=== PATIENT | male | born 1960 | race Caucasian/White ===

== ENCOUNTER 2021-01-22 19:34 | Emergency (ER) | payer OTHER, SELFPAY ==
[2021-01-22 19:54] VITALS: BP 139/86; PULSE 95; RESP 16; TEMP 37.9; O2SAT 95; BMI 27.3
--- NOTE | 2021-01-22 20:27 | W.ED.EXTPRO ---
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 Thought maybe it had a spider bite originally. Also presents with cough denies shortness of breath has had body aches fever sinus problems worried he might have Covid since he is on the road exposed to a lot of different areas. MD Complaint: extremity pain and extremity swelling Onset (ago): day(s) Pain Consistency: constant Location: right, lower extremity and knee Severity scale (1-10): 4 Quality: burning, aching and dull Radiation: proximal and distal Relieving factors: nothing Exacerbating factors: range of motion Associated symptoms: Reports arthralgias and fever(s); Deny chest pain or rash Context: recent travel Review of Systems Const: Reports: fever(s) and body aches Eyes: Denies: change in vision or blurry vision ENMT: Denies: throat pain or nasal congestion Card: Denies: chest pain or dyspnea on exertion Resp: Reports: non-productive cough; Denies: dyspnea or productive cough GI: Denies: abdominal pain, nausea or vomiting : Denies: difficulty urinating Musc: Reports: extremity pain, joint pain (Right knee) and joint swelling Skin/Breast: Denies: rash Neuro: Denies: headache(s) Psych: Denies: anxiety or depression Jose Luis/Lymph: Denies: easy bruising Physical Exam Const: COMMON NORMALS: no acute distress, average body habitus and patient oriented x3 HENMT: COMMON NORMALS: normocephalic HEAD & SCALP: normal to inspection and normocephalic FACE & SINUS: normal facial exam Eye: COMMON NORMALS: conjunctivae normal GENERAL EYE: appearance normal, both eyes and all related structures CONJUNCTIVA: Yes conjunctivae normal Neck/C-Spine: COMMON NORMALS: no JVD Chest: COMMONS NORMALS: normal inspection of the chest Resp: COMMON NORMALS: normal respiratory effort and clear to auscultation bilaterally AUSCULTATION: clear to auscultation bilaterally Cardio: COMMON NORMALS: no JVD, regular rate and regular rhythm RATE: regular rate RHYTHM: regular rhythm GI: COMMON NORMALS: Normal to inspection, nondistended, normoactive bowel sounds present Extremity: RIGHT LOWER EXTREMITY: Yes lower leg (Moderate erythema to right lower aspect of the knee, drainage, central area) Right lower leg: Yes inspection (Tender mild swelling) and Yes other (Central area of drainage to right lateral knee) Neuro: COMMON NORMALS: patient oriented x3 Course Vital Signs: Vital signs: Vital Signs Temperature 98.9 F 01/22/21 22:03 Pulse Rate 80 01/22/21 22:03 Respiratory Rate 18 01/22/21 22:03 Blood Pressure 143/78 01/22/21 22:03 Pulse Oximetry 96 01/22/21 22:03 MDM - Extremity (Nontraumatic) MDM Narrative: Medical decision making narrative: Patient with cellulitis to the superficial right knee area. Started with a pimple and now is progressed and spread to the lateral medial aspects of the knee. Possibly could start as a spider bite but now appears to be cellulitis. White count is 15,000. Patient responded well to antibiotics and pain medication. Patient was instructed to follow-up here if worsening symptoms and I went over those symptoms with him our follow-up CHRERY Auguste at [facility] next week. Lab Data: Labs: Lab Results 01/22/21 01/22/21 Range/Units 20:45 21:30 WBC 15.5 H (4.0-10.0) 10^3/ uL RBC 4.61 (4.1-5.3) 10^6/u L Hgb 13.6 (11.7-16.6) g/dL Hct 40.7 L (42.0-52.0) % MCV 88.3 (80-94) fL MCH 29.5 (28.0-34.0) pg MCHC 33.4 (30.0-36.0) g/dL RDW 12.4 (12.1-15.1) % Plt Count 194 (130-400) 10^3/c mm MPV 10.7 H (7.4-10.4) fL Neut % (Auto) 74.5 % Lymph % (Auto) 15.4 % [place] % (Auto) 9.2 % Eos % (Auto) 0.1 % Baso % (Auto) 0.3 % Neut # (Auto) 11.59 H (1.8-7.7) 10^3/u L Lymph # (Auto) 2.4 (0.8-4.8) 10^3/u L [place] # (Auto) 1.4 H (0.2-0.9) 10^3/u L Eos # (Auto) 0.0 (0.0-0.8) 10^3/u L Baso # (Auto) 0.0 (0.0-0.1) 10^3/u L Nucleated RBC % (a uto) 0 % Nucleated RBCs # 0.0 /100WBC SARS-CoV-2 Ag (Rap id) Negative (Negative) Discharge Plan Discharge Patient Disposition: Home Clinical Impression: Cellulitis Qualifiers: Site of cellulitis: extremity Site of cellulitis of extremity: lower extremity Laterality: right Qualified Code(s): L03.115 - Cellulitis of right lower limb Condition: Stable Prescriptions: New hydrocodone-acetaminophen 5-325 mg tablet 1 tab PO TID PRN (Reason: pain) Qty: 10 RF: 0 clindamycin HCl 300 mg capsule 300 mg PO TID 7 Days Qty: 21 RF: 0 No Action sertraline 25 mg tablet 25 mg PO DAILY RF: 0 multivitamin Tablet 1 tab PO DAILY RF: 0 zinc 50 mg Capsule 50 mg PO DAILY RF: 0 Discharge Orders: Discharge ED (Routine); Ordered 01/22/21 Ordered By: Robert Liu Referrals: Duran Cortez [Primary Care Provider] - Discharge Diet: Usual diet Discharge Activity: Increase activity as tolerated Patient Instructions: Cellulitis (ED), Opioid Safety Activity Restrictions/Additional Instructions: Follow-up with medical provider as directed. Take medications as prescribed. Return to the ER or your medical provider if condition worsens. Please read and understand discharge instructions. If any questions ask please. Coding Level of Care Code ED Manager Latin for Tj Fwd Exam Comprehensive
[2021-01-22] MEDS: HYDROcodone-acetaminophen 7.5-325 mg Tablet 1 TAB PO (21:16)
[2021-01-22] MEDS: cefTRIAXone 2,000 MG in sodium chloride 0.9% (plus) 100 ML 200 MG IV (21:17)
[2021-01-22 21:23] LABS: SARS Covid-2 Antigen Negative (Negative)
[2021-01-22 21:43] LABS: Basophils % 0.3 %; Eosinophils % 0.1 %; Hematocrit 40.7 % (42.0-52.0); Hemoglobin 13.6 g/dL (11.7-16.6); Lymphocytes # 2.4 10^3/uL (0.8-4.8); Lymphocytes % 15.4 %; Mean Corpuscular HGB Conc 33.4 g/dL (30.0-36.0); Mean Corpuscular Hemoglobin 29.5 pg (28.0-34.0); Mean Corpuscular Volume 88.3 fL (80-94); Mean Platelet Volume 10.7 fL (7.4-10.4); Monocytes # 1.4 10^3/uL (0.2-0.9); Monocytes % 9.2 %; Neutrophils # 11.59 10^3/uL (1.8-7.7); Neutrophils % 74.5 %; Nucleated Red Blood Cells % 0 %; Platelet Count 194 10^3/cmm (130-400); Red Blood Count 4.61 10^6/uL (4.1-5.3); Red Cell Distribution Width 12.4 % (12.1-15.1); White Blood Count 15.5 10^3/uL (4.0-10.0)
[2021-01-22 22:03] VITALS: BP 143/78; PULSE 80; RESP 18; TEMP 37.2; O2SAT 96
== END 2021-01-22 22:20 | disposition home or self-care (01) ==
PROVIDERS: Emergency Provider Nurse Practitioner Family; PCP Physician Assistant Medical
DX: L03.115 Cellulitis of right lower limb (principal); Z20.822 Contact with and (suspected) exposure to COVID-19
CPT/HCPCS: 85025; 87040; 87070; 87426; 96365; 99283; J0696

== ENCOUNTER 2021-01-25 15:47 | Inpatient (IN) | payer OTHER, SELFPAY ==
[2021-01-25 16:06] VITALS: BP 146/76; PULSE 91; RESP 18; TEMP 37.2; O2SAT 95; BMI 28.0
[2021-01-25 18:05] LABS: Basophils % 0.4 %; Eosinophils # 0.1 10^3/uL (0.0-0.8); Eosinophils % 1.1 %; Hematocrit 38.1 % (42.0-52.0); Hemoglobin 12.5 g/dL (11.7-16.6); Lymphocytes # 2.3 10^3/uL (0.8-4.8); Lymphocytes % 20.9 %; Mean Corpuscular HGB Conc 32.8 g/dL (30.0-36.0); Mean Corpuscular Hemoglobin 29.1 pg (28.0-34.0); Mean Corpuscular Volume 88.6 fL (80-94); Mean Platelet Volume 10.1 fL (7.4-10.4); Neutrophils # 7.63 10^3/uL (1.8-7.7); Neutrophils % 68.2 %; Nucleated Red Blood Cells % 0 %; Platelet Count 282 10^3/cmm (130-400); Red Cell Distribution Width 12.7 % (12.1-15.1); White Blood Count 11.2 10^3/uL (4.0-10.0)
[2021-01-25 18:30] LABS: Alanine Aminotransferase 92 U/L (0-41); Albumin Level 3.3 g/dL (3.5-5.2); Alkaline Phosphatase 194 IU/L (40-130); Anion Gap 15.5 (5-19); Aspartate Amino Transferase 33 U/L (0-40); Blood Urea Nitrogen 13 mg/dL (6-20); C Reactive Protein 203.5 mg/L (0.0-4.9); Calcium 8.7 mg/dL (8.5-10.5); Carbon Dioxide 26 mmol/L (22-29); Chloride 96 mmol/L (98-107); Glomerular Filtration Rate 115.8 mL/min (90-130); Glucose 120 mg/dL (65-115); Osmolality Calculated 279 mOsm/kg (285-295); Potassium 3.5 mmol/L (3.5-5.1); Sodium 134 mmol/L (136-145); Total Bilirubin 0.8 mg/dL (0.15-1.2); Total Protein 7.3 g/dL (6.6-8.7)
[2021-01-25 22:47] VITALS: BP 161/87; PULSE 100; RESP 17; O2SAT 97
--- NOTE | 2021-01-25 22:52 | XRR_ITS ---
PROCEDURE INFORMATION: Exam: XR Right Knee Exam date and time: 01/25/2021 10:52 PM Age: 60 years old Clinical indication: Pain; Edema; Yes, it is localized; Knee; Right TECHNIQUE: Imaging protocol: XR Right knee. Views: 3 views. COMPARISON: No relevant prior studies available. FINDINGS: Bones/joints: Mild patellofemoral compartment primary osteoarthritis. Soft tissues: Normal. XR/XR knee RT 3V* [id number] IMPRESSION: Mild patellofemoral compartment primary osteoarthritis.
--- NOTE | 2021-01-25 22:53 | W.ED.EXTPRO ---
HPI - Extremity Problem General: Chief complaint: Extremity Problem,Nontraumatic Stated complaint: RLE PAIN/SWELLING - SEEN HERE 01.22.21 FOR SAME Time Seen by Provider: 01/25/21 22:46 History of Present Illness: HPI Narrative: This patient is a 60-year-old male presents to the emergency department for cellulitis and abscess of the right lower leg just below the knee. Patient seen was a couple days ago and started on clindamycin. Patient states the erythema is getting worse and antibiotics not working. Patient was seen by his primary care doctor today and was advised to come back to the emergency department due to worsening cellulitis. Will do medical evaluation treat as MD Complaint: extremity pain and extremity swelling Location: right and lower extremity Radiation: none Relieving factors: nothing Exacerbating factors: range of motion and walking Associated symptoms: Deny chest pain, fever(s) or rash Review of Systems General: Reports: 10 or more systems reviewed and unremarkable except in HPI and below Const: Denies: fever(s), chills, body aches or fatigue Eyes: Denies: change in vision or blurry vision ENMT: Denies: throat pain, hoarseness or mouth pain Card: Denies: chest pain, palpitations, irregular heart rhythm, edema, swelling of feet/ankles or lightheadedness Resp: Denies: dyspnea, productive cough, non-productive cough, wheezing or pain on inspiration GI: Denies: abdominal pain, nausea or vomiting : Denies: flank pain, dysuria, urinary frequency, urinary urgency or urinary hesitancy Musc: Denies: neck pain, back pain, extremity pain, extremity swelling, joint pain, joint swelling, joint redness, joint warmth or limited range of motion Skin/Breast: Reports: erythema, skin tenderness, skin swelling, changing lesions and changes in skin color; Denies: rash or pruritus Neuro: Denies: headache(s), numbness in extremities or weakness in extremities Psych: Denies: anxiety or depression Physical Exam Const: COMMON NORMALS: no acute distress, average body habitus, patient oriented x3, no limitations, healthy appearing, alert and well nourished HENMT: COMMON NORMALS: normocephalic, atraumatic, hearing grossly normal bilaterally, external ears normal, EAC's normal, TM's normal bilaterally, Normal external nose present, Normal nasal mucous membranes and turbinates present, moist oral mucous membranes, oropharynx normal, dentition normal and gingiva normal HEAD & SCALP: normocephalic and atraumatic NOSE: Normal external nose present and Normal nasal mucous membranes and turbinates present EXTERNAL EAR: Yes external ears normal EXTERNAL AUDITORY CANAL: EAC's normal TYMPANIC MEMBRANE: TM's normal bilaterally Neck/C-Spine: COMMON NORMALS: full ROM, no lymphadenopathy, supple, no meningeal signs, no JVD, Thyroid normal and No carotid bruits THYROID: Thyroid normal Chest: COMMONS NORMALS: normal inspection of the chest, normal palpation of entire chest wall, normal inspection of the breasts and normal palpation of the breasts Breast/axilla inspection: Yes normal inspection of the breasts BREAST/AXILLA PALPATION: Yes normal palpation of the breasts Resp: COMMON NORMALS: normal respiratory effort, No retractions, No use of accessory muscles, clear to auscultation bilaterally and percussion normal AUSCULTATION: clear to auscultation bilaterally PERCUSSION: percussion normal Cardio: COMMON NORMALS: no JVD, regular rate, regular rhythm, S1 normal heart sound present, S2 normal heart sound present, No gallops present (Cardio), No clicks present (Cardio), No murmurs present (Cardio), No rub (Cardio) and Peripheral pulses 2+ throughout RATE: regular rate RHYTHM: regular rhythm HEART SOUNDS: S1 normal heart sound present and S2 normal heart sound present PERIPHERAL PULSES: Peripheral pulses 2+ throughout GI: COMMON NORMALS: Normal to inspection, nondistended, normoactive bowel sounds present, Soft to palpation, non-tender, No hepatosplenomegaly present, no masses and no bruits PALPATION: Yes Soft to palpation and Yes No hepatosplenomegaly present : COMMON NORMALS: Yes no CVA tenderness BLADDER/KIDNEY EXAM: Yes no CVA tenderness Back/Pelvis: COMMON NORMALS: no CVA tenderness, thoracic and lumbar spine normal to inspection, no thoracic nor lumbar tenderness, thoraco-lumbar ROM normal and straight leg raise negative bilaterally Extremity: COMMON NORMALS: capillary refill normal, no joint enlargement, no clubbing, cyanosis or edema, no calf tenderness and no pedal edema NARRATIVE EXTREMITY EXAM: Significant erythema and abscess below the knee of the right leg. Worsening cellulitis. Worsening swelling. Neuro: COMMON NORMALS: patient oriented x3 SENSORIUM/ORIENTATION: Yes alert MENINGEAL SIGNS: Yes no meningeal signs Course Reevaluation(s): Reevaluation #1: Patient stable at this time. I discussed at length with patient and friend about findings. Needed IV antibiotics. Possible surgical debridement. They are agreeable for admission to the Time: 23:59 Consultations: Consultation #1: I did discuss at length with Dr. Nair. He is agreeable to see the patient admitted for hospital for IV antibiotics. Time: 00:00 Vital Signs: Vital signs: Vital Signs Temperature 98.9 F 01/25/21 16:06 Pulse Rate 90 01/25/21 23:21 Respiratory Rate 18 01/25/21 23:21 Blood Pressure 161/87 01/25/21 22:47 Pulse Oximetry 95 01/25/21 23:21 MDM - Extremity (Nontraumatic) MDM Narrative: Medical decision making narrative: This patient is a 60-year-old male presents to the emergency department for cellulitis and abscess of the right lower leg just below the knee. Patient seen was a couple days ago and started on clindamycin. Patient states the erythema is getting worse and antibiotics not working. Patient was seen by his primary care doctor today and was advised to come back to the emergency department due to worsening cellulitis. Patient stable at this time. I discussed at length with patient and friend about findings. Needed IV antibiotics. Possible surgical debridement. They are agreeable for admission to the I did discuss at length with Dr. Nair. He is agreeable to see the patient admitted for hospital for IV antibiotics. Medical Records: Attestation: I reviewed the patient's medical records. Lab Data: Attestation: I reviewed the patient's lab results. Labs: Lab Results 01/25/21 01/25/21 01/25/21 Range/Units 17:57 17:57 23:00 WBC 11.2 H (4.0-10.0) 10^3/ uL RBC 4.30 (4.1-5.3) 10^6/u L Hgb 12.5 (11.7-16.6) g/dL Hct 38.1 L (42.0-52.0) % MCV 88.6 (80-94) fL MCH 29.1 (28.0-34.0) pg MCHC 32.8 (30.0-36.0) g/dL RDW 12.7 (12.1-15.1) % Plt Count 282 (130-400) 10^3/c mm MPV 10.1 (7.4-10.4) fL Neut % (Auto) 68.2 % Lymph % (Auto) 20.9 % [place] % (Auto) 9.0 % Eos % (Auto) 1.1 % Baso % (Auto) 0.4 % Neut # (Auto) 7.63 (1.8-7.7) 10^3/u L Lymph # (Auto) 2.3 (0.8-4.8) 10^3/u L [place] # (Auto) 1.0 H (0.2-0.9) 10^3/u L Eos # (Auto) 0.1 (0.0-0.8) 10^3/u L Baso # (Auto) 0.0 (0.0-0.1) 10^3/u L Nucleated RBC % (a uto) 0 % Nucleated RBCs # 0.0 /100WBC Sodium 134 L (136-145) mmol/L Potassium 3.5 (3.5-5.1) mmol/L Chloride 96 L (98-107) mmol/L Carbon Dioxide 26 (22-29) mmol/L Anion Gap 15.5 (5-19) BUN 13 (6-20) mg/dL Creatinine 0.7 (0.7-1.2) mg/dL GFR Calculation 115.8 (90-130) mL/min Glucose 120 H (65-115) mg/dL Calculated Osmolal ity 279 L (285-295) mOsm/k g Lactic Acid 1.1 (0.5-2.2) mmol/L Calcium 8.7 (8.5-10.5) mg/dL Total Bilirubin 0.8 (0.15-1.2) mg/dL AST 33 (0-40) U/L ALT 92 H (0-41) U/L Alkaline Phosphata se 194 H (40-130) IU/L C-Reactive Protein 203.5 H (0.0-4.9) mg/L Total Protein 7.3 (6.6-8.7) g/dL Albumin 3.3 L (3.5-5.2) g/dL Globulin 4.0 (1.3-4.6) g/dL Discharge Plan Discharge Patient Disposition: Admitted As Inpatient Clinical Impression: Cellulitis, Abscess Condition: Stable Coding Level of Care Code ED Photography And Prints Curator for Chg Fwd Exam Comprehensive
[2021-01-25 23:21] VITALS: PULSE 90; RESP 18; O2SAT 95
[2021-01-25] MEDS: vancomycin 1,000 MG in sodium chloride 0.9% 250 ML 250 MG IV (23:22)
[2021-01-25] MEDS: morphine 4 mg/mL SDV 1 mL IVP (23:22)
[2021-01-25] MEDS: ondansetron 2 mg/ML SDV 2 mL 4 MG IVP (23:22)
[2021-01-25] MEDS: sodium chloride 0.9% 500 ML IV (23:22)
[2021-01-25 23:56] LABS: Lactic Sepsis W/Reflex 1.1 mmol/L (0.5-2.2)
[2021-01-26] VITALS (11 sets, daily range): BP systolic 109–134; BP diastolic 59–74; PULSE 72–86; RESP 14–18; TEMP 36.6–38.1; O2SAT 91–97
--- NOTE | 2021-01-26 02:07 | P.HP_ITS ---
Providers/Chief Complaint Admitting Physician: Zhen Nair Primary Care Provider: Duran Cortez Chief Complaint: RLE PAIN/SWELLING - SEEN HERE 01.22.21 FOR SAME History of Present Illness Mario Joseph is a 60 year old male past medical history of depression on zoloft who presented to ER with worsening right lower extremity cellulits. Patient has denied any trauma to leg. Noted increasing erythema for which he was seen on and started on clindamycin 300 mg PO TID. Stated despite this his erythema progressively worsened. Noted an area on antrolateral aspect of right knee that started to drain pus like material. Noted subjective fever and chills. No nausea or vomiting. Denied any chest pain or dyspnea. On arrival to Er he was started on vancomycin and zosyn and admitted to hospitalist.. Review of Systems General: Reports: 10 or more systems reviewed and unremarkable except in HPI and below Medications/Allergies Home Medications Medication Instructions Recorded Confirmed Last Taken Type clindamycin HCl 300 mg PO TID 7 Days #21 cap 01/22/21 Unknown Rx hydrocodone-acetaminophen 1 tab PO TID PRN #10 tab 01/22/21 Unknown Rx multivitamin 1 tab PO DAILY 01/22/21 01/22/21 01/21/21 History sertraline 25 mg PO DAILY 01/22/21 01/22/21 01/21/21 History zinc 50 mg PO DAILY 01/22/21 01/22/21 01/21/21 History Allergies Allergy/AdvReac Type Severity Reaction Status Date / Time No Known Allergies Allergy Unverified 01/22/21 20:24 Vitals/I&O/Wt Last Vital Signs Temp 100.5 F H 01/26/21 03:00 Pulse 74 01/26/21 03:14 Resp 18 01/26/21 03:14 BP 122/74 01/26/21 03:14 Pulse Ox 97 01/26/21 03:14 01/25/21 01/25/21 01/26/21 14:59 22:59 06:59 Intake Total 500 / 500 Balance 500 / 500 Weight last 48 hrs Weight 93.894 kg Physical Exam Narrative: EXAM NARRATIVE: General- alert awake and oriented x3 HEENT: Grossly unremarkable Chest- Non-labored respiration CVS - regular rate rhythm Abdomen-soft nontender nondistended Extremities-Right knee ? anterlateral area abscess- draining, erythema extending to ankle. Data : 01/25/21 17:57 01/25/21 17:57 Micro: Microbiology 01/25/21 18:00 Blood Culture - Preliminary Blood SPECIMEN COLLECTED 01/25/21 17:57 Blood Culture - Preliminary Blood SPECIMEN COLLECTED A&P Assessment and plan (1) Cellulitis and abscess of left lower extremity: Failed outpatient tx with clindamycin Less likely septic joint however can not r/o Vancomycin/zosyn to continue Wound culture Blood culture x 2 Pain control Will need to consult surgery in am Status: Acute Attestations Medical Necessity Statement*: Anticipate over 2 midnight stay in hospital for eval and treatment of abscess/cellulitis failed outpatient treatment. Time Spent in Patient Care: Greater than 35 minutes (>than 50% of time spent in counselling and/or direct pt care on unit) . Coding Level of Care Code Acute Judicial Clerk for Tj Mancini Diagnoses Cellulitis and abscess of left lower extremity L03.116; L02.416
[2021-01-26] MEDS: sodium chloride 0.9% 1,000 ML 75 ML IV (04:50)
[2021-01-26] MEDS: HYDROcodone-acetaminophen 5-325 mg Tablet 1 TAB PO ×3 (04:51→23:58)
--- NOTE | 2021-01-26 08:04 | USCV_ITS ---
Mario Joseph Age: 60 Gender: M : 1960 Exam Date: 01/26/2021 11:23 Ordering Phys: Sherwin Berman MD Technologist: Opal Rich Exam Location: [facility] [place] Indication: RLE PAIN, SWELLING, AND DISCOLORATION HISTORY: Lower extremity swelling. Lower extremity pain. PROCEDURES: Venous duplex imaging was performed in only the right lower extremity. The following venous structures were evaluated: common femoral vein, profunda vein, proximal portion of the greater saphenous vein, superficial femoral vein, and the popliteal vein. In addition, the posterior tibial and peroneal trunk were evaluated. Serial compression, augmentation maneuvers, and spectral Doppler flow evaluation were performed. FINDINGS: Normal 2-D Doppler and augmentation and compressibility throughout the lower extremity venous structures. Additional imaging through the proximal calf veins also reveals no thrombus. Limited evaluation of the greater saphenous vein is patent with no thrombus. CONCLUSIONS No DVT right lower extremity. Dr. Renee Vang DO (Electronically Signed) Final Date: 26 January 2021 11:39 S
--- NOTE | 2021-01-26 08:17 | P.PN_ITS ---
Subjective Subjective: Interval history: Mario reports his knee feels a little bit better than yesterday. History and physical reviewed. Symptoms started about 1 week ago. And was draining around January 22. He reports prior to it draining there was a significant amount of swelling below his knee. Was treated with clindamycin starting after an emergency department visit on the . Medications: Reviewed: Yes Vitals/I&O/Wt Last Vital Signs Temp 98.3 F 01/26/21 08:00 Pulse 73 01/26/21 08:00 Resp 16 01/26/21 08:00 BP 110/67 01/26/21 08:00 Pulse Ox 93 01/26/21 08:00 01/25/21 01/26/21 01/26/21 22:59 06:59 14:59 Intake Total 800 / 800 Balance 800 / 800 Weight last 48 hrs Weight 93.894 kg Physical Exam Narrative: EXAM NARRATIVE: General exam is no apparent distress Neck is supple no lymphadenopathy or thyromegaly Cardiovascular regular rate and rhythm without murmur Lungs clear Abdomen is soft with positive bowel sounds Right lower extremity with erythema edema mostly centered over the prepatellar bursa but certainly extending into the local tissues. No significant pain with pressure over the patella, upper knee, or posterior. Distal pulses are intact. Edema of the leg is noted as well. Left leg appears normal with no cyanosis clubbing or edema Data : 01/25/21 17:57 01/25/21 17:57 Micro: Microbiology 01/25/21 18:00 Blood Culture - Preliminary Blood SPECIMEN COLLECTED 01/25/21 17:57 Blood Culture - Preliminary Blood SPECIMEN COLLECTED A&P Assessment and plan (1) Prepatellar bursitis: Patient failed outpatient treatment I believe he has septic prepatellar bursitis. It appears a culture has been done in the emergency department. A blood culture was also done. Orthopedic consultation Continue vancomycin, Zosyn Check venous duplex, to make sure no DVT is present Status: Acute (2) Cellulitis and abscess of left lower extremity: See above Status: Acute Additional A&P Information History of depression. Continue Zoloft. Full code Heparin for DVT prophylaxis Attestations Medical Necessity Statement*: Needs continued hospitalization for IV antibiotics secondary to septic bursitis Coding Level of Care Code Acute Baling Press Operator for Tj Mancini Diagnoses Prepatellar bursitis M70.40 Cellulitis and abscess of left lower extremity L03.116; L02.416
[2021-01-26] MEDS: vancomycin 1,500 MG/300 ML PIGGYBACK 200 MG IV ×3 (08:42→23:58)
[2021-01-26] MEDS: heparin 5,000 unit/mL INJ 1 mL 5000 UNIT SUBCUT ×2 (08:48→20:43)
[2021-01-26] MEDS: sertraline 50 mg Tablet 25 MG PO (08:48)
--- NOTE | 2021-01-26 10:20 | PC.CHAP ---
Pastoral Care Encounter/Spiritual Assessment Type of Contact [] Declined net software architect visit [] Patient/Family/Request visit [] Outpatient visit [] Follow-up visit [] Physician referral [] Code/Alert [x] Routine visit [] Staff referral [] Actively dying [x] Patient sleeping [] Family support [] [] Out of room [] Palliative care [] [] Receiving care in room [] Pre-surgical visit [] Trauma [] Long length of stay [] ICU visit [] Other: Relational/Emotional Strength [] Patient feels connected with others/family/visitors/staff [] Distress [] Loneliness/isolation [] Abandonment Spirituality of Patient [] Person of Sindy [] Attends Roman Catholic of their Sindy [] Believes in Prayer [] Reads Bible or Alevism materials [] There are Spiritual issues to be addressed Editor Newspaper Interventions [] Prayer [] Active listening [] Non-anxious presence [] Spiritual/emotional support [] Crisis/trauma care [] Spiritual counseling [] Bereavement support [] Provided bereavement packet [] Provided Bible/devotional materials [] Provided toy/stuffed animal, coloring book to patient or family member [] Provided Communion [] Anointing/[place] [] Salvation [] Completed spiritual assessment [] Other: Impact on Illness or Injury [] Angry [] Fearful [] Anxious [] Often cries [] Exhaustion [] Unable to work [] Unable to attend anabaptism [] Unable to walk/stand [] Unable to read [] Unable to drive [] Unable to eat/drink [] Unable to sleep [] Unable to be with family [] Patient intubated [] Other: Summary Time spent with patient
[2021-01-26] MEDS: piperacillin-tazobactam 3.375 GM in sodium chloride 0.9% (plus) 100 ML IV ×2 (10:43→18:12)
--- NOTE | 2021-01-26 13:41 | P.ANESASSM_ITS ---
Pre-Anesthetic Assessment Pre-Anesthetic Assessment: Height/Weight: Height 1.83 m Weight 93.894 kg Temp Pulse Resp BP Pulse Ox 98.3 F 75 17 115/67 91 01/26/21 12:00 01/26/21 12:00 01/26/21 12:00 01/26/21 12:00 01/26/21 12:00 Preop Diagnosis: infected bursa Proposed Procedure: Operation Date: 03/01/21 16:30 Proposed Procedures p Incision & Drainage knee(Left) - aKrrie Tellez MD Familial anesthetic complications: none Last intake: > 8 hrs Social: Social History: No alcohol and No tobacco Exam: Pre-Anes Outpt Exam: alert, oriented x 3, clear to auscultation bilaterally and regular rate & rhythm Airway: Cervical ROM: WNL MP: 2 Dentition: Full Anesthetic Plan: ASA status: 1 Anesthesia: General Risk of > 500 ml blood loss (7ml/kg in children): No Meds/Allergies Current Medications: Current Medications Generic Name Dose Route Start Last Admin Trade Name Freq PRN Reason Stop Dose Admin Hydrocodone Bitart /Acetaminophen 1 tab 01/26/21 04:05 01/26/21 04:51 Hydrocodone-Acet aminophen 5-325 Mg Tablet PO 1 tab Q4H PRN Administration MODERATE TO SEVER E PAIN Heparin Sodium (Be ef Lung) 5,000 unit 01/26/21 08:30 01/26/21 08:48 Heparin 5,000 Un it/Ml Inj 1 Ml SUBCUT 5,000 unit Q12H DEBORA Administration Sodium Chloride 1,000 mls @ 100 m ls/hr 01/26/21 04:15 01/26/21 08:48 Sodium Chloride 0.9% IV 100 mls/hr .Q10H DEBORA Infusion Vancomycin/PEG/NAD A/Lysine/Water 1,500 mg in 300 m ls @ 200 mls/hr 01/26/21 08:30 01/26/21 10:15 Vancocin IV Infused Q8H DEBORA Infusion Piperacillin Sod/T azobactam 100 mls @ 25 mls/ hr 01/26/21 09:30 01/26/21 10:43 Sod 3.375 gm/ So dium Chloride IV 25 mls/hr Q8H DEBORA Administration Protocol Sertraline HCl 25 mg 01/26/21 09:00 01/26/21 08:48 Sertraline 50 Mg Tablet PO 25 mg DAILY DEBORA Administration Data Anesthesia CBC & Chem 7: 01/25/21 17:57 01/25/21 17:57 Other Labs: Laboratory Results - last 48 hr 01/25/21 01/25/21 01/25/21 17:57 17:57 23:00 WBC 11.2 H RBC 4.30 Hgb 12.5 Hct 38.1 L MCV 88.6 MCH 29.1 MCHC 32.8 RDW 12.7 Plt Count 282 MPV 10.1 Neut % (Auto) 68.2 Lymph % (Auto) 20.9 [place] % (Auto) 9.0 Eos % (Auto) 1.1 Baso % (Auto) 0.4 Neut # (Auto) 7.63 Lymph # (Auto) 2.3 [place] # (Auto) 1.0 H Eos # (Auto) 0.1 Baso # (Auto) 0.0 Nucleated RBC % (auto) 0 Nucleated RBCs # 0.0 Sodium 134 L Potassium 3.5 Chloride 96 L Carbon Dioxide 26 Anion Gap 15.5 BUN 13 Creatinine 0.7 GFR Calculation 115.8 Glucose 120 H Calculated Osmolality 279 L Lactic Acid 1.1 Calcium 8.7 Total Bilirubin 0.8 AST 33 ALT 92 H Alkaline Phosphatase 194 H C-Reactive Protein 203.5 H Total Protein 7.3 Albumin 3.3 L Globulin 4.0 Micro: Microbiology 01/25/21 23:00 Gram Stain - Final Knee - #1 01/25/21 18:00 Blood Culture - Preliminary Blood SPECIMEN COLLECTED 01/25/21 17:57 Blood Culture - Preliminary Blood SPECIMEN COLLECTED Cardiac Studies: No Data to Display
[2021-01-26] MEDS: sodium chloride 0.9% 1,000 ML 100 ML IV (16:40)
[2021-01-26] MEDS: docusate sodium 100 mg Capsule PO (18:07)
[2021-01-26] MEDS: polyethylene glycol 3350 Pkt 17 gm PO (18:07)
--- NOTE | 2021-01-26 20:30 | P.CONIM_ITS ---
Providers/Reason For Consult Consulting Physician/Specialty*: Karrie Tellez MD Reason for Consult*: Right lower extremity cellulitis and anterior lateral wound Requesting Physician: Sherwin Berman MD Attending Physician: Sherwin Berman MD Primary Care Provider: Duran Cortez History of Present Illness History of Present Illness Mario Joseph is a 60 year old male who has developed a progressive cellulitis on his right lower extremity. Initially, he presented to the emergency department on 22 January. At that time, he was started on clindamycin 300 mg p.o. 3 times daily. Despite antibiotic treatment, the patient had progression of his symptoms. He presented to the emergency department today with an anterolateral wound that started to drain a puslike material. Reportedly, the patient also suffered fevers and chills. He denied any chest pain, nausea, or vomiting. Upon his arrival to the emergency department he was started on vancomycin and Zosyn and was admitted to the hospitalist team. I was consulted with regard to the lesion on his anterolateral knee area which was lateral to the patellar ligament and below the joint line. The patient had an ultrasound of his right lower extremity to rule out DVT as well. This was negative. Review of Systems General: Reports: 10 or more systems reviewed and unremarkable except in HPI and below Const: Denies: fever(s), chills, body aches or fatigue Eyes: Denies: change in vision or blurry vision ENMT: Denies: throat pain, hoarseness or mouth pain Card: Denies: chest pain, palpitations, irregular heart rhythm, edema, swelling of feet/ankles or lightheadedness Resp: Denies: dyspnea, productive cough, non-productive cough, wheezing or pain on inspiration GI: Denies: abdominal pain, nausea or vomiting : Denies: flank pain, dysuria, urinary frequency, urinary urgency or urinary hesitancy Musc: Denies: neck pain, back pain, extremity pain, extremity swelling, joint pain, joint swelling, joint redness, joint warmth or limited range of motion Skin/Breast: Reports: erythema, skin tenderness, skin swelling, changing lesions and changes in skin color; Denies: rash or pruritus Neuro: Denies: headache(s), numbness in extremities or weakness in extremities Psych: Denies: anxiety or depression Meds/Allergies Home Medications and Allergies Home Medications Medication Instructions Recorded Confirmed Last Taken Type clindamycin HCl 300 mg PO TID 7 Days #21 cap 01/22/21 01/26/21 01/25/21 Rx hydrocodone-acetaminophen 1 tab PO TID PRN #10 tab 01/22/21 01/26/21 01/25/21 Rx multivitamin 1 tab PO DAILY 01/22/21 01/26/21 01/25/21 History sertraline 25 mg PO DAILY 01/22/21 01/26/21 01/25/21 History zinc 50 mg PO DAILY 01/22/21 01/26/21 01/25/21 History Allergies Allergy/AdvReac Type Severity Reaction Status Date / Time No Known Allergies Allergy Unverified 01/22/21 20:24 Current Medications Current Medications Generic Name Dose Route Start Last Admin Trade Name Freq PRN Reason Stop Dose Admin Hydrocodone Bitart/Acetaminophen 1 tab 01/26/21 04:05 01/26/21 15:41 Hydrocodone-Acetaminophen 5-325 Mg Tablet PO 1 tab Q4H PRN Administration MODERATE TO SEVERE PAIN Docusate Sodium 100 mg 01/26/21 18:00 01/26/21 18:07 Docusate Sodium 100 Mg Capsule PO 100 mg BID DEBORA Administration Heparin Sodium (Beef Lung) 5,000 unit 01/26/21 08:30 01/26/21 08:48 Heparin 5,000 Unit/Ml Inj 1 Ml SUBCUT 5,000 unit Q12H DEBORA Administration Sodium Chloride 1,000 mls @ 100 mls/hr 01/26/21 04:15 01/26/21 16:40 Sodium Chloride 0.9% IV 100 mls/hr .Q10H DEBORA Administration Vancomycin/PEG/NA[place]/Lysine/Water 1,500 mg in 300 mls @ 200 mls/hr 01/26/21 08:30 01/26/21 17:38 Vancocin IV Infused Q8H DEBORA Infusion Piperacillin Sod/Tazobactam 100 mls @ 25 mls/hr 01/26/21 09:30 01/26/21 18:12 Sod 3.375 gm/ Sodium Chloride IV 25 mls/hr Q8H DEBORA Administration Protocol Polyethylene Glycol 17 gm 01/26/21 18:00 01/26/21 18:07 Polyethylene Glycol 3350 Pkt 17 Gm PO 17 gm BID DEBORA Administration Sertraline HCl 25 mg 01/26/21 09:00 01/26/21 08:48 Sertraline 50 Mg Tablet PO 25 mg DAILY DEBORA Administration Vitals/I&O/Wt Last Vital Signs Temp 98.0 F 01/26/21 20:00 Pulse 82 01/26/21 20:00 Resp 16 01/26/21 20:00 BP 115/73 01/26/21 20:00 Pulse Ox 93 01/26/21 20:00 01/26/21 01/26/21 01/26/21 06:59 14:59 22:59 Intake Total 800 / 800 597.5 / 597.5 1462.5 / 2060.0 Balance 800 / 800 597.5 / 597.5 1462.5 / 2060.0 Weight last 48 hrs Weight 207 lb Physical Exam Const: COMMON NORMALS: no acute distress, average body habitus, patient oriented x3 and alert GENERAL APPEARANCE: cooperative and comfortable ORIENTATION/CONSCIOUSNESS: Yes awake HENMT: COMMON NORMALS: normocephalic and atraumatic HEAD & SCALP: normocephalic and atraumatic Eye: GENERAL EYE: appearance normal, both eyes and all related structures Chest: COMMONS NORMALS: normal inspection of the chest Resp: COMMON NORMALS: normal respiratory effort EFFORT & INSPECTION: Yes able to speak in complete sentences and Yes symmetric chest movement Extremity: RIGHT LOWER EXTREMITY: Yes knee joint (There is a draining wound slightly distal to the knee) Right knee: Yes inspection (Cellulitis and swelling about the knee and distally), Yes palpation (Tender about the lesion.), Yes ROM (0 to 90 degrees without pain.) and Yes neurovascular exam (Intact distally) and Yes lower leg (Cellulitis with significant swelling) Neuro: COMMON NORMALS: patient oriented x3 SENSORIUM/ORIENTATION: Yes alert Psych: COMMON NORMALS: mental status grossly normal APPEARANCE: Yes grossly normal ATTITUDE: Yes calm and Yes engaged ATTENTION/CONCENTRATION: Yes attention grossly intact Skin: COMMON NORMALS: no rashes or lesions noted GENERAL SKIN EXAM: no rashes or lesions noted Data Micro: Micro: Microbiology 01/25/21 18:00 Blood Culture - Pr eliminary Blood NEGATIVE TO TIFFANY E 01/25/21 17:57 Blood Culture - Pr eliminary Blood NEGATIVE TO TIFFANY E 01/25/21 23:00 Gram Stain - Final Knee - #1 Imaging^: Xray Ortho: I personally reviewed and interpreted this imaging study as follows: My impression: Knee images are obtained. These are personally interpreted by me. Imaging studies include 3 views of the knee and are negative for fracture, dislocation, or other significant abnormality. There is no obvious significant soft tissue swelling, but there is mild patellofemoral compartment osteoarthritic change. A&P Assessment and plan (1) Cellulitis and abscess of left lower extremity: Patient was seen and evaluated. He was able to move his knee comfortably. He was ambulating with crutches. He actually noted his symptoms were improving. We elected to proceed with an MRI with and without contrast prior to planning any sort of surgical drainage or intervention. There is no sign of sepsis. The patient's white count is diminishing on his IV antibiotics. This was discussed with the hospitalist team. The patient will be reevaluated tomorrow. Status: Acute Consult Attestations Medical Necessity Statement: Ongoing hospitalization for IV antibiotic and appropriate care and evaluation of a right lower extremity abscess. Coding Level of Care Code Acute Business Services Sales Representative for [facility] Live Diagnoses Cellulitis and abscess of left lower extremity L03.116; L02.416
[2021-01-27] VITALS (7 sets, daily range): BP systolic 104–136; BP diastolic 62–90; PULSE 74–79; RESP 14–18; TEMP 36.4–37.7; O2SAT 93–98
[2021-01-27] MEDS: piperacillin-tazobactam 3.375 GM in sodium chloride 0.9% (plus) 100 ML IV ×3 (03:02→21:00)
[2021-01-27] MEDS: sodium chloride 0.9% 1,000 ML 100 ML IV ×2 (05:33→21:00)
[2021-01-27 07:28] LABS: Basophils % 0.5 %; Eosinophils # 0.2 10^3/uL (0.0-0.8); Hematocrit 35.2 % (42.0-52.0); Hemoglobin 11.7 g/dL (11.7-16.6); Lymphocytes # 2.4 10^3/uL (0.8-4.8); Lymphocytes % 30.8 %; Mean Corpuscular HGB Conc 33.2 g/dL (30.0-36.0); Mean Corpuscular Hemoglobin 29.4 pg (28.0-34.0); Mean Corpuscular Volume 88.4 fL (80-94); Mean Platelet Volume 9.9 fL (7.4-10.4); Monocytes # 0.7 10^3/uL (0.2-0.9); Monocytes % 8.7 %; Neutrophils % 56.5 %; Nucleated Red Blood Cells % 0 %; Platelet Count 263 10^3/cmm (130-400); Red Blood Count 3.98 10^6/uL (4.1-5.3); Red Cell Distribution Width 12.6 % (12.1-15.1); White Blood Count 7.6 10^3/uL (4.0-10.0)
[2021-01-27 07:47] LABS: Vancomycin Trough 16.1 ug/mL (10-15)
[2021-01-27 07:48] LABS: Anion Gap 11.9 (5-19); Blood Urea Nitrogen 9 mg/dL (6-20); Calcium 8.1 mg/dL (8.5-10.5); Carbon Dioxide 28 mmol/L (22-29); Chloride 103 mmol/L (98-107); Glomerular Filtration Rate 115.8 mL/min (90-130); Glucose 103 mg/dL (65-115); Osmolality Calculated 287 mOsm/kg (285-295); Potassium 3.9 mmol/L (3.5-5.1); Sodium 139 mmol/L (136-145)
[2021-01-27] MEDS: docusate sodium 100 mg Capsule PO (08:51)
[2021-01-27] MEDS: HYDROcodone-acetaminophen 5-325 mg Tablet 1 TAB PO ×2 (08:51→23:11)
[2021-01-27] MEDS: sertraline 50 mg Tablet 25 MG PO (08:51)
[2021-01-27] MEDS: vancomycin 1,500 MG/300 ML PIGGYBACK 100 MG IV (08:52)
[2021-01-27] MEDS: heparin 5,000 unit/mL INJ 1 mL 5000 UNIT SUBCUT ×2 (08:52→21:00)
[2021-01-27] MEDS: gadobenate dimeglumine 20 mL vial IV (10:52)
--- NOTE | 2021-01-27 10:54 | PC.NURSE ---
OFF UNIT PT CURRENTLY OFF UNIT IN MRI
--- NOTE | 2021-01-27 15:04 | MR_ITS ---
WS: [id number] INDICATION: Right lateral knee abscess TECHNIQUE: MR of the right lower leg without and with gadolinium enhancement. Coronal T1 and STIR sag ittal T1 STIR axial PD, axial T2, sagittal T1, and post gadolinium imaging was obtained with fat satu ration technique. FINDINGS: Diffuse soft tissue edema with skin thickening and enhancement involving the lateral knee s oft tissues compatible with cellulitis. Peripheral enhancing multifocal abscess measuring 2.2 x 1.8 c m in maximum dimension. Additional adjacent smaller tiny satellite abscesses. This is not easily drai nable considering the small size. Abscesses lateral to the patella tendon. Normal underlying bone mar row signal. No evidence of osteomyelitis. Normal bone marrow signal in the tibia and fibula. MR/MR lower leg RT wo/w con [id number] IMPRESSION: 1. Small multifocal abscesses in the area of concern right lateral knee adjace nt to the tibial plateau and joint line at the level of the patella tendon. Lar gest pocket measures 1.8 x 2.2 CM. Smaller adjacent satellite abscess collectio ns. This is not easily drainable considering small size. 2. Diffuse extensive edema with enhancement compatible with cellulitis. 3. Underlying bone marrow signal is normal. No evidence of osteomyelitis.
--- NOTE | 2021-01-27 15:07 | P.PN_ITS ---
Subjective Subjective: Interval history: Mario reports his knee feels a little bit better than yesterday. History and physical reviewed. Symptoms started about 1 week ago. And was draining around January 22. He reports prior to it draining there was a significant amount of swelling below his knee. Was treated with clindamycin starting after an emergency department visit on the . Today, t he patient is up in his room. He is able to weight-bear with less discomfort. He has had his MRI. Medications: Reviewed: Yes Vitals/I&O/Wt Last Vital Signs Temp 97.6 F 01/27/21 11:35 Pulse 74 01/27/21 11:35 Resp 17 01/27/21 11:35 BP 136/74 01/27/21 11:35 Pulse Ox 97 01/27/21 11:35 01/27/21 01/27/21 01/27/21 06:59 14:59 22:59 Intake Total 1999 / 4060.0 880 / 880 Output Total 375 / 775 1650 / 1650 Balance 1625 / 3285.0 -770 / -770 Weight last 48 hrs Weight 207 lb Physical Exam Const: COMMON NORMALS: no acute distress, average body habitus, patient oriented x3 and alert GENERAL APPEARANCE: cooperative and comfortable ORIENTATION/CONSCIOUSNESS: Yes awake HENMT: COMMON NORMALS: normocephalic and atraumatic HEAD & SCALP: normocephalic and atraumatic Eye: GENERAL EYE: appearance normal, both eyes and all related structures Chest: COMMONS NORMALS: normal inspection of the chest Resp: COMMON NORMALS: normal respiratory effort EFFORT & INSPECTION: Yes able to speak in complete sentences and Yes symmetric chest movement Extremity: RIGHT LOWER EXTREMITY: Yes lower leg (Abscess is present and drainage, but it is decreased in size.) Right lower leg: Yes inspection (Cellulitis remains.), Yes palpation (Tender and able to express purulent fluid) and Yes neurovascular exam (Intact distally) Neuro: COMMON NORMALS: patient oriented x3 SENSORIUM/ORIENTATION: Yes alert Psych: COMMON NORMALS: mental status grossly normal APPEARANCE: Yes grossly normal ATTITUDE: Yes calm and Yes engaged ATTENTION/CONCENTRATION: Yes attention grossly intact Skin: COMMON NORMALS: no rashes or lesions noted GENERAL SKIN EXAM: no rashes or lesions noted Data : 01/27/21 07:15 01/27/21 07:15 Micro: Microbiology 01/25/21 23:00 Gram Stain - Final Knee - #1 Wound Culture - Preliminary Staphylococcus aureus 01/25/21 18:00 Blood Culture - Preliminary Blood NEGATIVE TO DATE 01/25/21 17:57 Blood Culture - Preliminary Blood NEGATIVE TO DATE MRI: I personally reviewed and interpreted this imaging study as follows: My impression: Please see radiologist impression below Radiologist's impression: 1. Small multifocal abscesses in the area of concern right lateral knee adjacent to the tibial plateau and joint line at the level of the patella tendon. Largest pocket measures 1.8 x 2.2 CM. Smaller adjacent satellite abscess collections. This is not easily drainable considering small size. 2. Diffuse extensive edema with enhancement compatible with cellulitis. 3. Underlying bone marrow signal is normal. No evidence of osteomyelitis. A&P Assessment and plan (1) Cellulitis and abscess of left lower extremity: Patient was seen and evaluated. He was able to move his knee comfortably. He was ambulating with crutches. He actually noted his symptoms were improving. MRI was obtained today with and without contrast. The patient feels that his symptoms are improving with IV antibiotic use. He is to undergo surgical intervention tomorrow. This will be accomplished to irrigate and debride the abscess. He will then require wound care services at the time of discharge. Risks and complications are discussed with the patient and surgery is scheduled. Status: Acute Attestations Medical Necessity Statement*: Patient requires ongoing hospitalization for IV antibiotic and planned surgical intervention in the form of an irrigation and debridement. Coding Level of Care Code Acute Lead Dental Assistant for [facility] Fwd Exam Detailed Diagnoses Cellulitis and abscess of left lower extremity L03.116; L02.416
--- NOTE | 2021-01-27 15:59 | P.PN_ITS ---
Subjective Subjective: Interval history: Mario reports his knee is a little bit better. No fever overnight Medications: Reviewed: Yes Vitals/I&O/Wt Last Vital Signs Temp 98.6 F 01/27/21 15:57 Pulse 74 01/27/21 15:57 Resp 18 01/27/21 15:57 BP 125/74 01/27/21 15:57 Pulse Ox 98 01/27/21 15:57 01/27/21 01/27/21 01/27/21 06:59 14:59 22:59 Intake Total 1999 / 4060.0 880 / 880 Output Total 375 / 775 1650 / 1650 Balance 1625 / 3285.0 -770 / -770 Weight last 48 hrs Weight 93.894 kg Physical Exam Narrative: EXAM NARRATIVE: General exam is no apparent distress Neck is supple no lymphadenopathy or thyromegaly Cardiovascular regular rate and rhythm without murmur Lungs clear Abdomen is soft with positive bowel sounds Right lower extremity with erythema edema that appears improved. Dressing with drainage Left leg appears normal with no cyanosis clubbing or edema Data : 01/27/21 07:15 01/27/21 07:15 Micro: Microbiology 01/25/21 23:00 Gram Stain - Final Knee - #1 Wound Culture - Preliminary Staphylococcus aureus 01/25/21 18:00 Blood Culture - Preliminary Blood NEGATIVE TO DATE 01/25/21 17:57 Blood Culture - Preliminary Blood NEGATIVE TO DATE A&P Assessment and plan (1) Prepatellar bursitis: Patient failed outpatient treatment Abscess on MRI is lateral to the patellar tendon, not involving the knee joint Appreciate orthopedic consultation Continue vancomycin and Zosyn Await cultures, wound cultures growing staph aureus and blood cultures negative to date Venous duplex was negative Surgery for incision and drainage planned for tomorrow Status: Acute (2) Cellulitis and abscess of left lower extremity: See above Status: Acute Additional A&P Information History of depression. Continue Zoloft. Full code Heparin for DVT prophylaxis Attestations Medical Necessity Statement*: Needs continued hospitalization for IV antibiotics secondary to abscess, cellulitis right lower extremity. Coding Level of Care Code Acute Printing Equipment Mechanic for [facility] Fwd Diagnoses Prepatellar bursitis M70.40 Cellulitis and abscess of left lower extremity L03.116; L02.416
[2021-01-27] MEDS: vancomycin 1,500 MG/300 ML PIGGYBACK 200 MG IV (16:16)
[2021-01-28] VITALS (28 sets, daily range): BP systolic 110–149; BP diastolic 62–92; PULSE 67–102; RESP 14–30; TEMP 36.2–37; O2SAT 91–99
[2021-01-28] MEDS: vancomycin 1,500 MG/300 ML PIGGYBACK 200 MG IV ×2 (00:35→14:00)
[2021-01-28 03:25] LABS: Basophils % 0.4 %; Eosinophils # 0.3 10^3/uL (0.0-0.8); Eosinophils % 2.8 %; Hematocrit 36.4 % (42.0-52.0); Hemoglobin 11.9 g/dL (11.7-16.6); Lymphocytes # 3.1 10^3/uL (0.8-4.8); Mean Corpuscular HGB Conc 32.7 g/dL (30.0-36.0); Mean Corpuscular Hemoglobin 29.1 pg (28.0-34.0); Monocytes # 0.7 10^3/uL (0.2-0.9); Neutrophils # 5.24 10^3/uL (1.8-7.7); Neutrophils % 56.4 %; Nucleated Red Blood Cells % 0 %; Platelet Count 301 10^3/cmm (130-400); Red Blood Count 4.09 10^6/uL (4.1-5.3); Red Cell Distribution Width 12.8 % (12.1-15.1); White Blood Count 9.3 10^3/uL (4.0-10.0)
[2021-01-28 03:43] LABS: Blood Urea Nitrogen 9 mg/dL (6-20); Calcium 8.5 mg/dL (8.5-10.5); Carbon Dioxide 27 mmol/L (22-29); Chloride 105 mmol/L (98-107); Glomerular Filtration Rate 86.7 mL/min (90-130); Glucose 107 mg/dL (65-115); Osmolality Calculated 289 mOsm/kg (285-295); Sodium 140 mmol/L (136-145)
[2021-01-28] MEDS: piperacillin-tazobactam 3.375 GM in sodium chloride 0.9% (plus) 100 ML IV (06:19)
--- NOTE | 2021-01-28 10:37 | P.PN_ITS ---
Subjective Subjective: Interval history: Mario reports he is doing okay. Believes the leg is improving. Surgery is planned today. Medications: Reviewed: Yes Vitals/I&O/Wt Last Vital Signs Temp 97.5 F L 01/28/21 07:57 Pulse 72 01/28/21 07:57 Resp 18 01/28/21 07:57 BP 120/70 01/28/21 07:57 Pulse Ox 93 01/28/21 07:57 01/27/21 01/28/21 01/28/21 22:59 06:59 14:59 Intake Total 1520 / 2400 400 / 2800 1100 / 1100 Output Total 775 / 2425 1025 / 3450 400 / 400 Balance 745 / -25 -625 / -650 700 / 700 Physical Exam Narrative: EXAM NARRATIVE: General exam is no apparent distress Neck is supple no lymphadenopathy or thyromegaly Cardiovascular regular rate and rhythm without murmur Lungs clear Abdomen is soft with positive bowel sounds Right lower extremity with erythema. Dressing in place. Edema is improved. Left leg appears normal with no cyanosis clubbing or edema Data : 01/28/21 03:13 01/28/21 03:13 Micro: Microbiology 01/25/21 23:00 Gram Stain - Final Knee - #1 Wound Culture - Preliminary Staphylococcus aureus A&P Assessment and plan (1) Prepatellar bursitis: Patient failed outpatient treatment Abscess on MRI is lateral to the patellar tendon, not involving the knee joint Appreciate orthopedic consultation Continue vancomycin. Zosyn can be discontinued Cultures growing staph aureus, blood cultures negative today Incision and drainage planned for today Status: Acute (2) Cellulitis and abscess of left lower extremity: See above Status: Acute Additional A&P Information History of depression. Continue Zoloft. Full code Heparin for DVT prophylaxis No need for laboratory tomorrow if continues to clinically improve. Surgery today, and if clinically improved discharge home tomorrow. Will need wound care as an outpatient. Attestations Medical Necessity Statement*: Needs continued hospital stay for IV antibiotics secondary to cellulitis right leg Coding Level of Care Code Acute Mitochondrial Disorders Counselor for [facility] Fwd Diagnoses Prepatellar bursitis M70.40 Cellulitis and abscess of left lower extremity L03.116; L02.416
[2021-01-28] MEDS: CELEcoxib 200 mg Capsule 400 MG PO (13:15)
[2021-01-28] MEDS: sodium chloride 0.9% 1,000 ML 30 ML IV (13:17)
[2021-01-28] MEDS: acetaminophen 1,000 MG/100 ML PIGGYBACK 400 MG IV (13:18)
[2021-01-28] MEDS: fentaNYL 50 mcg/mL INJ 2mL IVP ×2 (14:58→15:03)
[2021-01-28] MEDS: ondansetron 2 mg/ML SDV 2 mL 4 MG IVP (14:58)
[2021-01-28] MEDS: metoclopramide 5 mg/mL SDV 2 mL 10 MG IVP (15:09)
[2021-01-28] MEDS: HYDROmorphone 1 mg/mL INJ 1 mL 0.5 MG IVP ×2 (15:09→15:19)
--- NOTE | 2021-01-28 15:29 | PM.OP ---
Operative Report Date of procedure: January 28, 2021 Pre-op Diagnosis: Abscess right leg lateral near knee Pre-op Diagnosis: with extension distally and to prepatellar bursa Post-op diagnosis: same Post-op Findings: Extension of abscess pocket into the prepatellar bursa and lateral calf Procedure Done: Irrigation and debridement skin, subcutaneous tissue, and bursal tissue of abscess lateral right leg with drain and primary closure Implants: None Specimens removed/disposition: Tissue for culture Pathology: none sent Surgeon: Karrie Tellez Assembler [employer]: [facility] operating room technicians Anesthesia: General (LMA) Estimated blood loss (mL): 10 Tourniquet time (min): 37 Tourniquet time: At 250 mmHg IV fluids (mL): 600 IV fluids: Normal saline Urine output (mL): 0 Complications: None Findings: Cellulitis extending through the calf with open draining lateral knee wound Condition: stable Disposition: PACU (Then return to floor for postoperative management medically.) Brief History: This 60-year-old gentleman presented through the emergency department with a draining lateral knee wound. He was admitted and given IV antibiotics with some improvement. MRI with contrast was ordered to assure this did not go into the knee joint. Finding that it did not go to the knee joint, the patient was scheduled for irrigation and debridement of the lateral knee abscess. Risks and complications were discussed with the patient and consents were signed. Questions were answered preoperatively. Procedure: Patient was brought to the operating theater and after undergoing adequate general anesthesia per LMA, the patient's right lower extremity was prepped and draped in usual fashion utilizing Betadine. A tourniquet was placed high on the leg prior to prepping and draping. The tourniquet was elevated prior to commencement of the surgical procedure to 250 mmHg. Total tourniquet time was 37 minutes. Prior to commencement of the surgical procedure, a surgical pause was performed. At the time of the surgical pause, we identified the site and side of surgery. We also confirm the patient's identity and appropriate and timely administration of preoperative antibiotics. Preoperative surgical markings were also visualized at this time. The patient's wound was evaluated. A longitudinal incision was made extending proximally and distally as necessary to allow access to the soft tissue abscess underneath the area of necrotic skin. Skin was debrided minimally to get back to bleeding skin even though it was still of concern, this was maintained to see if it would heal and be able to have primary closure. Debridement was accomplished of the skin and subcutaneous tissue as well as the bursal tissue and abscess tissue which was encountered upon entry into the area. There was no significant large pocket of purulent fluid, but there was a generalized necrosis and necrotic tissue which was encountered. I used my finger to reach up into the area of the prepatellar bursa and also distally along the lateral calf and soft tissue was debrided from this area as well. The wound was then irrigated with 6 L of fluid. This contained vancomycin. After this, the skin was evaluated and we were able to primary close the skin with interrupted 2-0 Ethilon suture in an interrupted mattress fashion. Prior to closure, a Hemovac drain was placed and placed to self suction. Sterile dressing was placed consisting of Xeroform gauze, 4 x 4's, ABD, sterile soft roll, and an Ry wrap. The tourniquet was released after 37 minutes. Patient was returned to Recovery Room in satisfactory condition where he will be discharged home to follow-up with me in the office as scheduled. There were no complications and no specimens. Associated Problem List Diagnoses (1) Prepatellar bursitis: Qualifiers: Laterality: right Qualified Code(s): M70.41 - Prepatellar bursitis, right knee (2) Cellulitis and abscess of left lower extremity:
[2021-01-28] MEDS: morphine 4 mg/mL SDV 1 mL 2 MG IVP ×3 (16:01→20:34)
[2021-01-28] MEDS: sodium chloride 0.9% 1,000 ML 75 ML IV (16:04)
--- NOTE | 2021-01-28 16:11 | PC.OT ---
per discussion with P.T.; patient demonstrates no deficits in ADL and no further skilled OT required at this time.
--- NOTE | 2021-01-28 16:53 | ANE.PACU2 ---
Inpatient post-anesthesia follow up: Airway intact: Yes Vital signs: Temperature 98.6 F Pulse Rate [Monito r] 91 Pulse Rate 84 Respiratory Rate 18 Blood Pressure [Le ft Arm] 146/76 Blood Pressure 130/77 Pulse Oximetry 95 Oxygen Delivery Me thod [ Nasal Cannula Current Rate & Del yosef] Oxygen Delivery Me thod Nasal Cannula Oxygen Flow Rate [ Current Rate 2 & Delivery] Oxygen Flow Rate 2 Fraction of Inspir ed Oxygen Hydration adequate: Yes Nausea and vomiting: No Pain level: 2 Mental status: Baseline
[2021-01-28] MEDS: HYDROcodone-acetaminophen 5-325 mg Tablet 1 TAB PO ×2 (17:00→22:31)
[2021-01-28] MEDS: heparin 5,000 unit/mL INJ 1 mL 5000 UNIT SUBCUT (19:56)
[2021-01-29] MEDS: vancomycin 1,500 MG/300 ML PIGGYBACK 200 MG IV (01:10)
[2021-01-29 04:00] VITALS: BP 120/78; PULSE 74; RESP 18; TEMP 36.6; O2SAT 100
--- NOTE | 2021-01-29 04:06 | PC.NURSE ---
END OF SHIFT SUMMARY PT HAS REQUIRED BOTH PO AND IV PAIN MEDICATION THROUGHOUT SHIFT - PAIN WELL CONTROLLED - HAS REMAINED AT SIDE - IV PATENT VIA PUMP - ADEQUATE OUTPUT NOTED - RIGHT LEG BULKY MIKE REMAINS C/D/I WITH NO REDNESS OR DRAINAGE NOTED - PPP WITH 1+ EDEMA
[2021-01-29 04:29] VITALS: RESP 18
[2021-01-29] MEDS: morphine 4 mg/mL SDV 1 mL 2 MG IVP ×2 (04:29→10:32)
[2021-01-29] MEDS: sodium chloride 0.9% 1,000 ML 75 ML IV (04:34)
[2021-01-29] MEDS: sertraline 50 mg Tablet 25 MG PO (07:55)
[2021-01-29] MEDS: HYDROcodone-acetaminophen 5-325 mg Tablet 1 TAB PO ×2 (07:55→12:00)
[2021-01-29] MEDS: heparin 5,000 unit/mL INJ 1 mL 5000 UNIT SUBCUT (07:56)
[2021-01-29 08:00] VITALS: BP 118/72; PULSE 63; RESP 18; TEMP 36.7; O2SAT 97
--- NOTE | 2021-01-29 09:38 | PM.DCS ---
Discharge Providers Date of Admission: 01/26/21 00:01 Date of Discharge: January 29, 2021 Attending Provider at Admission: Zhen Nair Attending Provider at Discharge: Sherwin Berman MD Primary Care Provider: Duran Cortez Diagnoses at Discharge Discharge Diagnosis (1) Prepatellar bursitis: Status: Acute Qualifiers: Laterality: right Qualified Code(s): M70.41 - Prepatellar bursitis, right knee (2) Cellulitis and abscess of left lower extremity: Status: Acute Reason for Visit Reason for Visit: RLE PAIN/SWELLING - SEEN HERE 01.22.21 FOR SAME Hospital Course Hospital Course Mario presented to the hospital with a draining abscess near his right knee. He was febrile. He was placed on broad-spectrum antibiotics. Orthopedics was consulted. MRI was obtained demonstrating abscess, not involving the joint. He underwent incision and drainage on January 28. Cultures from admission demonstrated MRSA. By January 29 wound was much better. Blood cultures were negative. It was thought he could be discharged home with close follow-up with his primary care provider as well as wound care early next week. Venous duplex and plain x-ray were also obtained which demonstrated no fracture, no DVT. Physical Exam Narrative: EXAM NARRATIVE: General exam no apparent distress Neck supple no lymphadenopathy thyromegaly Cardiovascular regular rate and rhythm without murmur Lungs clear Abdomen is soft with positive bowel sounds Extremities, right with no cyanosis or clubbing. Dressing in place. Discharge Data Data Completed and Pending: Completed Studies During Hospitalization Category Date Time Status XR knee RT 3V* 73 562 Stat Exams 01/25/21 22:52 Completed MR lower leg RT w o/w con [id number] Rout ine MRI 01/27/21 15:04 [place] [id number] Routin e Ultrasound 01/26/21 08:04 Completed Pending at discharge Category Date Time Status Abscess Culture a nd Gram Stain Rout ine Lab 01/28/21 14:00 Received Anaerobic Culture Routine Lab 01/28/21 14:00 Received Blood Culture Sta t Lab 01/25/21 18:00 Results Tissue Culture an d Gram Stain Routi ne Lab 01/28/21 14:00 Received Vancomycin Trough Timed Lab 01/29/21 13:00 Ordered Wound Culture and Gram Stain Stat Lab 01/25/21 23:00 Results Vitals: Last Vital Signs Temp 98.0 F 01/29/21 08:00 Pulse 63 01/29/21 08:00 Resp 18 01/29/21 08:00 BP 118/72 01/29/21 08:00 Pulse Ox 97 01/29/21 08:00 Discharge Plan Discharge Patient Disposition: Home Condition: Stable Prescriptions: New hydrocodone-acetaminophen 5-325 mg Tablet 1 tab PO Q4H PRN (Reason: Moderate To Severe Pain) Qty: 20 RF: 0 sulfamethoxazole-trimethoprim [Bactrim DS] 800-160 mg tablet 1 tab PO BID Qty: 14 RF: 0 Continued sertraline 25 mg tablet 25 mg PO DAILY RF: 0 multivitamin Tablet 1 tab PO DAILY RF: 0 zinc 50 mg Capsule 50 mg PO DAILY RF: 0 Discontinued hydrocodone-acetaminophen 5-325 mg tablet 1 tab PO TID PRN (Reason: pain) Qty: 10 RF: 0 clindamycin HCl 300 mg capsule 300 mg PO TID 7 Days Qty: 21 RF: 0 Discharge Orders: Discharge Order (Routine); Ordered 01/29/21 Ordered By: Sherwin Berman Referrals: Duran Cortez [Primary Care Provider] - 4-7 days [facility] [Staff Physician] - 1 week Discharge Diet: Regular Discharge Activity: Increase activity as tolerated Patient Instructions: Opioid Safety Activity Restrictions/Additional Instructions: Weightbearing right leg as tolerated Wound care instructions per orthopedics Follow-up with wound care on Monday. Please arrange follow-up time and date prior to discharge. Discharge Attestations Time Spent in Discharge Care*: greater than 30 min Quality Metrics Clinical Quality Measures During this hospital stay, did patient experience: None Coding Level of Care Code Acute g [facility] note Diagnoses Prepatellar bursitis M70.41 Laterality: right Cellulitis and abscess of left lower extremity L03.116; L02.416
[2021-01-29 10:32] VITALS: RESP 18
[2021-01-29 12:00] VITALS: BP 128/77; PULSE 67; RESP 18; TEMP 36.9; O2SAT 93
--- NOTE | 2021-01-29 12:00 | PC.NURSE ---
DIscharge instructions reviewed with patient and . All questions answered. Drain was removed prior to discharge instructions with charge nurse CRISSY Patel. Current dressing was reapplied. Patient was escorted via wheelchair to exit.
[2021-01-29 12:26] VITALS: BP 128/77; PULSE 67; RESP 18; TEMP 36.9; O2SAT 93
--- NOTE | 2021-01-29 13:28 | PC.SOCIAL ---
[facility] called to indicate they did not receive the script for Bactrim DS but do have narcotic script. Called in verbal for the Bactrim DS to PHarmacist Yolande for 7 days to be taken twice daily 14 pills total no refills.
== END 2021-01-29 12:26 | disposition home or self-care (01) | DRG 464 ==
LOC: ER 01-26 → MEDSURG 01-26 01:49
PROVIDERS: Physician Assistant; Specialist; Admitting Provider Hospitalist; Emergency Provider Emergency Medicine; PCP Physician Assistant Medical; Visit Provider Internal Medicine
PROC: 0JBN0ZZ Excision of Right Lower Leg Subcutaneous Tissue and Fascia, Open Approach (ICD-10-PCS; principal; 2021-01-28 13:00)
DX: M71.161 Other infective bursitis, right knee (principal); L03.115 Cellulitis of right lower limb; L02.415 Cutaneous abscess of right lower limb; F32.9 Major depressive disorder, single episode, unspecified; A49.01 Methicillin susceptible Staphylococcus aureus infection, unspecified site
CPT/HCPCS: 36415; 73562; 73720; 80048; 80053; 80202; 83605; 85025; 86140; 87040; 87070; 87075; 87077; 87176; 87186; 87205; 93971; 96365; 96367; 96372; 96375; 97110; 97116; 97161; 97165; 99285; A9577; J1100; J1170; J1644; J2270; J2405; J2543; J2704; J2765; J3010; J3370; J3490; J7030; J7040; J7050

== ENCOUNTER 2021-02-01 13:28 | Outpatient (CLI) | payer OTHER, SELFPAY | END 2021-02-01 13:29 | disposition home or self-care (01) | LOC: WOUND 13:29 | PROVIDERS: PCP Physician Assistant Medical; Visit Provider Nurse Practitioner Family | DX: L02.415 Cutaneous abscess of right lower limb (principal) | CPT/HCPCS: G0463 ==

== ENCOUNTER 2021-03-11 10:01 | Outpatient (CLI) | payer OTHER, SELFPAY | END 2021-03-11 10:02 | disposition home or self-care (01) | LOC: WOUND 10:02 | PROVIDERS: PCP Physician Assistant Medical; Visit Provider Emergency Medicine | DX: R23.4 Changes in skin texture (principal) | CPT/HCPCS: 99212 ==